=== PATIENT | male | born 1975 | race Caucasian/White ===

== ENCOUNTER 2017-04-13 16:23 | Emergency (ER) | payer MEDICAID, OTHER ==
[~2017-04-13] VITALS: Ht 188 cm; Wt 97.7 kg
[~2017-04-13 16:23] MED LIST: ACET65TA; CIPRO; No Historical Meds; PERC5TAB8
[2017-04-13 18:14] LABS: MEAN CORPUSCULAR HEMOGLOBIN 32.7 pg (27.0-33.0); MEAN CORPUSCULAR HGB CONC 32.3 g/dl (32.0-36.5); RED CELL DISTRIBUTION WIDTH 12.6 % (11.5-14.5); WHITE BLOOD COUNT 13.6 K/mm3 (4.0-10.0)
[2017-04-13] MEDS ORDERED: OMEP40CA2 PO (18:51)
[2017-04-13] MEDS ORDERED: GABA-282 PO (18:51)
[2017-04-13] MEDS ORDERED: METO1TAB87 PO (18:51)
[2017-04-13] MEDS ORDERED: KEPP1TAB PO (18:51)
[2017-04-13] MEDS ORDERED: IBUP-1022 PO (18:51)
[2017-04-13] MEDS ORDERED: FLUO40CA PO (18:51)
[2017-04-13 19:03] LABS: METHADONE URINE NEGATIVE (NEGATIVE)
[2017-04-13 19:11] LABS: ALBUMIN/GLOBULIN RATIO 1.18 (1.00-1.93); ALKALINE PHOSPHATASE 121 U/L (45-117); ALT/SGPT 21 U/L (12-78); ANION GAP 7 MEQ/L (8-16); AST/SGOT 13 U/L (15-37); BILIRUBIN,DIRECT 0.1 MG/DL (0.0-0.2); BILIRUBIN,TOTAL 0.3 MG/DL (0.2-1.0); BLOOD UREA NITROGEN 8 MG/DL (7-18); CALCIUM LEVEL 8.8 MG/DL (8.5-10.1); CARBON DIOXIDE LEVEL 26 MEQ/L (21-32); CHLORIDE LEVEL 109 MEQ/L (98-107); CREATININE FOR GFR 0.76 MG/DL (0.70-1.30); GLOMERULAR FILTRATION RATE > 60.0 (>60); GLUCOSE, FASTING 91 MG/DL (70-105); POTASSIUM SERUM 4.2 MEQ/L (3.5-5.1); SODIUM LEVEL 142 MEQ/L (136-145); TOTAL PROTEIN 7.4 GM/DL (6.4-8.2)
[2017-04-13] MEDS: OMEPRAZOLE 20 MG CAP PO ONE (20:24)
[2017-04-13] MEDS: FLUoxetine 20 MG CAP PO ONE (20:24)
[2017-04-13] MEDS: LORazepam 0.5 MG TAB PO STA (20:24)
[2017-04-13] MEDS: traZODone 100 MG TAB PO ONE (20:24)
[2017-04-13] MEDS: NICOTINE 14 MG/24 HR TRANSDERMAL TD ONE (20:29)
[2017-04-14] MEDS ORDERED: METAL LOCK LOOP XX ONE (05:15)
[2017-04-14 07:13] VITALS: BP 126/72
== END 2017-04-14 07:17 ==
LOC: M ED 16:23
DX: R45.851 Suicidal ideations (principal); F32.9 Major depressive disorder, single episode, unspecified; F17.200 Nicotine dependence, unspecified, uncomplicated; M25.569 Pain in unspecified knee; Z87.81 Personal history of (healed) traumatic fracture
CPT/HCPCS: 36415; 80048; 80076; 80307; 84443; 85027; 99285; G0480